=== PATIENT | male | born 1935 | race Caucasian/White ===

== ENCOUNTER 2021-06-12 15:16 | Inpatient (IN) | payer OTHER ==
[~2021-06-12] VITALS: Ht 172.7 cm; Wt 64.5 kg
[2021-06-12 15:49] LABS: HEMATOCRIT 42.1 % (42.0-52.0); MEAN CELL VOLUME 80.3 fl (80.0-94.0); MEAN CORPUSCULAR HGB 25.4 pg (27.0-31.0); MEAN CORPUSCULAR HGB CONC 31.6 g/dl (33.0-37.0); PLATELET COUNT AUTOMATED 364 10*3/uL (130-400); RED BLOOD COUNT 5.24 10*6/uL (4.50-5.90); RED CELL DISTRI WIDTH 17.9 % (0-14.5); WHITE BLOOD COUNT 26.1 10*3/uL (4.8-10.8)
[2021-06-12 15:59] LABS: ARTERIAL BLOOD GAS PH 7.428 (7.35-7.45); ARTERIAL BLOOD GAS PO2 83.7 (80-90)
[2021-06-12 16:00] LABS: BILIRUBIN Negative (Negative); BLOOD Trace-Lysed (Negative); CLARITY Cloudy (Clear); COLOR Yellow (Yellow); GLUCOSE Negative (Negative); KETONE Negative (Negative); LEUKO ESTERASE 3+ (Negative); NITRITE Positive (Negative); PH >= 9.0 (4.5-8.0); SPECIFIC GRAVITY 1.015 (1.001-1.030)
[2021-06-12 16:01] LABS: ACT PARTIAL THROMBO TIME 28.8 SECONDS (20.0-32.1); INTERNATIONAL NORM RATIO 1.1 (2.0-3.5)
[2021-06-12 16:05] LABS: ALBUMIN 3.1 gm/dl (3.1-4.5); CREATININE 1.65 mg/dL (0.70-1.30); POTASSIUM 4.4 mmol/L (3.5-5.1); TOTAL PROTEIN 8.1 gm/dL (6.4-8.2)
[2021-06-12 16:07] VITALS: BP 128/78
[2021-06-12 16:08] LABS: BACTERIA 4+
[2021-06-12 16:09] LABS: EPITHELIAL CELLS 0-2; RBC 0-2 rbc/hpf (0-2); TRIP PHOS CRYSTALS 1+
[2021-06-12 16:14] LABS: TOTAL CELLS COUNTED 100 #CELLS
[2021-06-12 16:15] LABS: PLATELET SUFFICIENCY NORMAL (NORMAL)
[2021-06-12 17:41] VITALS: BP 146/70
[2021-06-12] MEDS ORDERED: ACETAMINOPHEN500 M5 PO (18:07)
[2021-06-12] MEDS ORDERED: ALIGN4 M1 PO (18:08)
[2021-06-12] MEDS ORDERED: CHOLESTYRAMINE P4 GM PO (18:10)
[2021-06-12] MEDS ORDERED: LOTRISONE 0.05%15 GM T (18:16)
[2021-06-12] MEDS ORDERED: LOPERAMIDE HCL2 MG PO (18:17)
[2021-06-12] MEDS ORDERED: METOPROLOL SUCC50 M1 PO (18:18)
[2021-06-12] MEDS ORDERED: PAROXETINE HCL10 MG PO (18:20)
[2021-06-12] MEDS ORDERED: OMEPRAZOLE20 M2 PO (18:20)
[2021-06-12] MEDS ORDERED: TRAD5TAB1 PO (18:22)
[2021-06-12] MEDS ORDERED: ROXICODONE5 MG PO (18:22)
[2021-06-12 21:04] VITALS: BP 144/72
[2021-06-13] VITALS (7 sets, daily range): BP systolic 116–160; BP diastolic 56–70
[2021-06-13 05:08] LABS: ALBUMIN 2.4 gm/dl (3.1-4.5); CREATININE 1.42 mg/dL (0.70-1.30); POTASSIUM 3.9 mmol/L (3.5-5.1); TOTAL PROTEIN 6.9 gm/dL (6.4-8.2)
[2021-06-13 06:56] LABS: HEMATOCRIT 37.4 % (42.0-52.0); MEAN CELL VOLUME 83.1 fl (80.0-94.0); MEAN CORPUSCULAR HGB 25.3 pg (27.0-31.0); MEAN CORPUSCULAR HGB CONC 30.5 g/dl (33.0-37.0); MEAN PLATELET VOLUME 11.5 fl (9.6-12.3); PLATELET COUNT AUTOMATED 283 10*3/uL (130-400); RED CELL DISTRI WIDTH 18.1 % (0-14.5); WHITE BLOOD COUNT 21.3 10*3/uL (4.8-10.8)
[2021-06-13 08:07] LABS: BASOPHILS 2 % (0-1); TOTAL CELLS COUNTED 100 #CELLS
[2021-06-13 08:08] LABS: BURR CELLS FEW; PLATELET SUFFICIENCY NORMAL (NORMAL); SCHISTOCYTES FEW
[2021-06-14] VITALS: BP 138/62
[2021-06-14 06:51] LABS: BASO % 0.3 % (0.0-1.0); EOS # 0.1 10*3/uL (0.0-0.4); EOS % 0.6 % (1.0-4.0); HEMATOCRIT 33.9 % (42.0-52.0); LYMPH # 0.5 10*3/uL (1.3-4.4); LYMPH % 3.6 % (27.0-41.0); MEAN CELL VOLUME 82.1 fl (80.0-94.0); MEAN CORPUSCULAR HGB 25.7 pg (27.0-31.0); MEAN CORPUSCULAR HGB CONC 31.3 g/dl (33.0-37.0); MEAN PLATELET VOLUME 11.3 fl (9.6-12.3); MONO # 0.9 10*3/uL (0.1-1.0); MONO % 6.3 % (3.0-9.0); NEUT % 88.5 % (47.0-73.0); PLATELET COUNT AUTOMATED 218 10*3/uL (130-400); RED BLOOD COUNT 4.13 10*6/uL (4.50-5.90); WHITE BLOOD COUNT 13.6 10*3/uL (4.8-10.8)
[2021-06-14 07:06] LABS: ALBUMIN 2.1 gm/dl (3.1-4.5); ALKALINE PHOSPHATASE 94 U/L (45-117); BUN 23 mg/dl (7-24); CHLORIDE 110 mmol/L (98-107); POTASSIUM 3.5 mmol/L (3.5-5.1); SGOT/AST 17 IU/L (3-35); SGPT/ALT 14 U/L (12-78); SODIUM 140 mmol/L (136-145); TOTAL PROTEIN 6.6 gm/dL (6.4-8.2)
[2021-06-14 08:00] VITALS: BP 148/90
[2021-06-14 12:00] VITALS: BP 138/62
[2021-06-14] MEDS ORDERED: CEFTRIAXONE2 G1 IV (13:34)
[2021-06-14 16:00] VITALS: BP 152/75
[2021-06-14 20:00] VITALS: BP 138/56
[2021-06-15] VITALS: BP 153/65
[2021-06-15 06:20] LABS: CHLORIDE 110 mmol/L (98-107); POTASSIUM 4.1 mmol/L (3.5-5.1); SODIUM 139 mmol/L (136-145)
[2021-06-15 06:24] LABS: BASO % 0.4 % (0.0-1.0); EOS # 0.2 10*3/uL (0.0-0.4); EOS % 2.1 % (1.0-4.0); HEMATOCRIT 34.3 % (42.0-52.0); LYMPH # 0.6 10*3/uL (1.3-4.4); LYMPH % 5.5 % (27.0-41.0); MEAN CELL VOLUME 81.9 fl (80.0-94.0); MEAN CORPUSCULAR HGB 25.1 pg (27.0-31.0); MEAN CORPUSCULAR HGB CONC 30.6 g/dl (33.0-37.0); MEAN PLATELET VOLUME 11.8 fl (9.6-12.3); MONO # 0.9 10*3/uL (0.1-1.0); MONO % 8.4 % (3.0-9.0); NEUT # 9.2 10*3/uL (2.3-7.9); NEUT % 82.8 % (47.0-73.0); PLATELET COUNT AUTOMATED 231 10*3/uL (130-400); RED BLOOD COUNT 4.19 10*6/uL (4.50-5.90); RED CELL DISTRI WIDTH 17.7 % (0-14.5); WHITE BLOOD COUNT 11.1 10*3/uL (4.8-10.8)
[2021-06-15 06:38] LABS: ALBUMIN 2.1 gm/dl (3.1-4.5); ALKALINE PHOSPHATASE 100 U/L (45-117); BUN 26 mg/dl (7-24); CREATININE 1.07 mg/dL (0.70-1.30); SGOT/AST 29 IU/L (3-35); SGPT/ALT 21 U/L (12-78); TOTAL PROTEIN 6.8 gm/dL (6.4-8.2)
[2021-06-15 08:00] VITALS: BP 155/66
[2021-06-15] MEDS ORDERED: CEFTRIAXON2 GM/50 ML IV (11:52)
[2021-06-15 12:00] VITALS: BP 152/77
[2021-06-15 16:00] VITALS: BP 156/77
[2021-06-15 20:00] VITALS: BP 175/67
[2021-06-16] VITALS: BP 160/70
[2021-06-16 08:00] VITALS: BP 164/67
[2021-06-16 12:23] VITALS: BP 157/73
[2021-06-16 16:00] VITALS: BP 129/88
[2021-06-16 20:00] VITALS: BP 128/61
[2021-06-17] VITALS: BP 169/82
[2021-06-17 06:20] LABS: BASO # 0.1 10*3/uL (0.0-0.1); BASO % 0.6 % (0.0-1.0); EOS # 0.3 10*3/uL (0.0-0.4); EOS % 2.9 % (1.0-4.0); HEMATOCRIT 38.4 % (42.0-52.0); LYMPH # 1.1 10*3/uL (1.3-4.4); LYMPH % 10.1 % (27.0-41.0); MEAN CORPUSCULAR HGB 24.9 pg (27.0-31.0); MEAN CORPUSCULAR HGB CONC 31.5 g/dl (33.0-37.0); MEAN PLATELET VOLUME 11.4 fl (9.6-12.3); MONO # 1.3 10*3/uL (0.1-1.0); MONO % 11.4 % (3.0-9.0); NEUT # 8.2 10*3/uL (2.3-7.9); NEUT % 73.5 % (47.0-73.0); PLATELET COUNT AUTOMATED 273 10*3/uL (130-400); RED BLOOD COUNT 4.86 10*6/uL (4.50-5.90); RED CELL DISTRI WIDTH 17.5 % (0-14.5); WHITE BLOOD COUNT 11.2 10*3/uL (4.8-10.8)
[2021-06-17 06:22] LABS: BUN 21 mg/dl (7-24); CHLORIDE 110 mmol/L (98-107); CREATININE 0.97 mg/dL (0.70-1.30); POTASSIUM 3.5 mmol/L (3.5-5.1); SODIUM 138 mmol/L (136-145)
[2021-06-17 08:00] VITALS: BP 153/71; BP 170/80
[2021-06-17 12:00] VITALS: BP 152/81
[2021-06-17 16:00] VITALS: BP 153/78
[2021-06-17 20:00] VITALS: BP 156/76
[2021-06-18] VITALS: BP 152/76
[2021-06-18 05:59] LABS: ALBUMIN 2.1 gm/dl (3.1-4.5); ALKALINE PHOSPHATASE 124 U/L (45-117); BUN 21 mg/dl (7-24); CHLORIDE 110 mmol/L (98-107); CREATININE 1.03 mg/dL (0.70-1.30); POTASSIUM 3.9 mmol/L (3.5-5.1); SGOT/AST 26 IU/L (3-35); SGPT/ALT 21 U/L (12-78); SODIUM 137 mmol/L (136-145); TOTAL PROTEIN 6.8 gm/dL (6.4-8.2)
[2021-06-18 06:10] LABS: HEMATOCRIT 37.6 % (42.0-52.0); MEAN CELL VOLUME 79.3 fl (80.0-94.0); MEAN CORPUSCULAR HGB 24.7 pg (27.0-31.0); MEAN CORPUSCULAR HGB CONC 31.1 g/dl (33.0-37.0); MEAN PLATELET VOLUME 11.1 fl (9.6-12.3); PLATELET COUNT AUTOMATED 312 10*3/uL (130-400); RED BLOOD COUNT 4.74 10*6/uL (4.50-5.90); RED CELL DISTRI WIDTH 17.7 % (0-14.5); WHITE BLOOD COUNT 13.5 10*3/uL (4.8-10.8)
[2021-06-18 07:06] LABS: BASOPHILS 1 % (0-1); PLATELET SUFFICIENCY NORMAL (NORMAL); TOTAL CELLS COUNTED 100 #CELLS
[2021-06-18 08:00] VITALS: BP 174/78
[2021-06-18 12:00] VITALS: BP 152/66
[2021-06-18 15:26] VITALS: BP 150/58
[2021-06-18 20:00] VITALS: BP 151/71
[2021-06-19] VITALS: BP 175/77
[2021-06-19 06:39] LABS: HEMATOCRIT 39.3 % (42.0-52.0); MEAN CELL VOLUME 78.9 fl (80.0-94.0); MEAN CORPUSCULAR HGB 24.9 pg (27.0-31.0); MEAN CORPUSCULAR HGB CONC 31.6 g/dl (33.0-37.0); MEAN PLATELET VOLUME 10.8 fl (9.6-12.3); PLATELET COUNT AUTOMATED 346 10*3/uL (130-400); RED BLOOD COUNT 4.98 10*6/uL (4.50-5.90); RED CELL DISTRI WIDTH 17.8 % (0-14.5); WHITE BLOOD COUNT 12.7 10*3/uL (4.8-10.8)
[2021-06-19 06:56] LABS: BUN 23 mg/dl (7-24); CHLORIDE 107 mmol/L (98-107); CREATININE 1.03 mg/dL (0.70-1.30); SODIUM 138 mmol/L (136-145)
[2021-06-19 07:43] LABS: BASOPHILS 3 % (0-1); PLASMA CELL 1 % (0-0); TOTAL CELLS COUNTED 100 #CELLS; TOXIC GRANULATION SLIGHT
[2021-06-19 07:44] LABS: MICROCYTOSIS SLIGHT; OVALOCYTES FEW; PLATELET SUFFICIENCY NORMAL (NORMAL); POLYCHROMASIA SLIGHT
[2021-06-19 08:00] VITALS: BP 146/77
[2021-06-19 12:00] VITALS: BP 150/81
[2021-06-19 16:00] VITALS: BP 153/74
[2021-06-19 20:00] VITALS: BP 151/90
[2021-06-20] VITALS: BP 153/78
[2021-06-20 06:37] LABS: HEMATOCRIT 38.6 % (42.0-52.0); MEAN CELL VOLUME 79.4 fl (80.0-94.0); MEAN CORPUSCULAR HGB 24.9 pg (27.0-31.0); MEAN CORPUSCULAR HGB CONC 31.3 g/dl (33.0-37.0); MEAN PLATELET VOLUME 10.3 fl (9.6-12.3); PLATELET COUNT AUTOMATED 380 10*3/uL (130-400); RED BLOOD COUNT 4.86 10*6/uL (4.50-5.90); RED CELL DISTRI WIDTH 17.7 % (0-14.5)
[2021-06-20 06:59] LABS: ALBUMIN 2.3 gm/dl (3.1-4.5); ALKALINE PHOSPHATASE 152 U/L (45-117); BUN 25 mg/dl (7-24); CHLORIDE 104 mmol/L (98-107); CREATININE 1.21 mg/dL (0.70-1.30); POTASSIUM 4.3 mmol/L (3.5-5.1); SGOT/AST 30 IU/L (3-35); SGPT/ALT 22 U/L (12-78); SODIUM 138 mmol/L (136-145); TOTAL PROTEIN 7.4 gm/dL (6.4-8.2)
[2021-06-20 08:00] VITALS: BP 156/80
[2021-06-20 08:20] LABS: BASOPHILS 2 % (0-1); MICROCYTOSIS SLIGHT; PLATELET SUFFICIENCY NORMAL (NORMAL); TOTAL CELLS COUNTED 100 #CELLS
[2021-06-20 08:21] LABS: POLYCHROMASIA SLIGHT
[2021-06-20 12:00] VITALS: BP 136/66
[2021-06-20 16:00] VITALS: BP 133/74
[2021-06-20 20:00] VITALS: BP 146/72
[2021-06-21] VITALS: BP 153/76
[2021-06-21 08:00] VITALS: BP 150/74
[2021-06-21 12:00] VITALS: BP 138/71
[2021-06-21] MEDS ORDERED: AMOXICILLIN500 M2 PO (12:28)
== END 2021-06-21 16:10 | DRG 853 ==
LOC: ED 15:16 → 4E 17:10 → EDHOLD 17:10 → 4E 06-13 00:11 → 5E 06-19 05:50
PROVIDERS: Emergency Medicine; Family Medicine; Student in an Organized Health Care Education/Training Program; ADMIT Emergency Medicine; ATTEND Emergency Medicine
PROC: 0JBN0ZZ Excision of Right Lower Leg Subcutaneous Tissue and Fascia, Open Approach (ICD-10-PCS; 2021-06-13)
PROC: 02HV33Z Insertion of Infusion Device into Superior Vena Cava, Percutaneous Approach (ICD-10-PCS; principal; 2021-06-15)
DX: A41.50 Gram-negative sepsis, unspecified (principal); N17.0 Acute kidney failure with tubular necrosis; J18.9 Pneumonia, unspecified organism; G93.41 Metabolic encephalopathy; N39.0 Urinary tract infection, site not specified; E44.0 Moderate protein-calorie malnutrition; C79.11 Secondary malignant neoplasm of bladder; Z20.822 Contact with and (suspected) exposure to COVID-19; R65.20 Severe sepsis without septic shock; I10 Essential (primary) hypertension; E11.9 Type 2 diabetes mellitus without complications; B96.20 Unspecified Escherichia coli [E. coli] as the cause of diseases classified elsewhere; I25.10 Atherosclerotic heart disease of native coronary artery without angina pectoris; F32.A Depression, unspecified; E78.5 Hyperlipidemia, unspecified; R31.9 Hematuria, unspecified; K21.9 Gastro-esophageal reflux disease without esophagitis; F41.9 Anxiety disorder, unspecified; Z68.21 Body mass index [BMI] 21.0-21.9, adult; Z95.1 Presence of aortocoronary bypass graft; Z90.49 Acquired absence of other specified parts of digestive tract; Z87.891 Personal history of nicotine dependence; Z88.1 Allergy status to other antibiotic agents; Z88.8 Allergy status to other drugs, medicaments and biological substances; Z88.2 Allergy status to sulfonamides; Z79.1 Long term (current) use of non-steroidal anti-inflammatories (NSAID); Z79.899 Other long term (current) drug therapy